=== PATIENT | male | born 1955 | race Caucasian/White ===

== ENCOUNTER → 2019-06-22 07:28 | Outpatient (CLI) | payer BC, SELFPAY ==
--- NOTE | 2019-06-22 | DI.MRI.S_ITS ---
PROCEDURE: MR LUMBAR SPINE WO CON INDICATIONS: Low back pain TECHNIQUE: Noncontrast sagittal T1 spin echo and T2 fast echo, sagittal STIR, axial T1 and T2 fast spin echo through the lumbar spine. In cases with scoliosis, additional coronal T2 fast spin echo may be performed. COMPARISON: None. FINDINGS: Image quality: Excellent. Alignment and Curvature: There is trace L3-L4 retrolisthesis. Bone Marrow: Minimal reactive endplate changes adjacent to the L1-L2, L2-L3, L3-L4 and L4-L5 discs. No acute vertebral body compression fractures. Spinal Cord: Conus medullaris terminates at the T12 level. Visualized cord demonstrates normal signal and size. Paraspinous Soft Tissues: No paravertebral masses. L1-L2: Loss of disc signal. No central stenosis. No neural foraminal narrowing. No neural compression. L2-L3: Loss of disc signal. Mild, diffuse disc bulge. No central stenosis. Mild bilateral neural foraminal narrowing. No neural compression. L3-L4: Loss of signal. Mild, diffuse disc bulge. No central stenosis. Moderate right and mild left neural foraminal narrowing. No neural compression. L4-L5: Loss of disc signal. Mild, diffuse disc bulge. Mild left facet hypertrophy. Small left foraminal disc protrusion. No central stenosis. Mild right and severe left neural foraminal narrowing with slight compression of the exiting left L4 nerve root. L5-S1: Normal appearance. IMPRESSION: 1. Mild multilevel degenerative disc disease. 2. No central stenosis. 3. Mild right and severe left L4-L5 neural foraminal narrowing. Moderate right and mild left L3-L4 neural foraminal narrowing. Mild bilateral L2-L3 neural foraminal narrowing. 4. Slight compression of the exiting left L4 nerve root secondary to foraminal stenosis caused by left foraminal disc protrusion. Dictated by: Wendy Hanna MD, PhD on 06/22/2019 at 11:36 Approved by: Wendy Hanna MD, PhD on 06/22/2019 at 11:52
== END ==
PROVIDERS: PCP Internal Medicine; Referring Provider Physical Medicine & Rehabilitation; Visit Provider Physical Medicine & Rehabilitation
DX: M51.36 Other intervertebral disc degeneration, lumbar region (principal); M51.26 Other intervertebral disc displacement, lumbar region; M48.061 Spinal stenosis, lumbar region without neurogenic claudication
CPT/HCPCS: 72148

== ENCOUNTER 2019-06-28 06:42 | Day surgery (SDC) | payer BC, SELFPAY ==
--- NOTE | 2019-06-28 | PATH_ITS ---
[facility] Accession Number: [id number] . 01 Material submitted: . PART A: colon - COLON POLYP AT 110 CM PART B: cecum - CECAL POLYPS PART C: colon - COLON POLYPS AT 60 CM . 01 Clinical history: . SCREENING COLONOSCOPY . 02 Diagnosis: A. Colon, Polyp at 110 cm, Biopsy: Tubular adenoma. . B. Cecum, Polyps, Biopsies: Tubular adenomas. . C. Colon, Polyps at 60 cm, Biopsy: Tubular adenoma in four of six fragments. MRV 06/29/2019 0947 Local . 02 Electronically signed: . Sera Sanabria MD, Pathologist NPI- [id number] . 01 Gross description: . Part A: COLON POLYP AT 110 CM: Received in formalin is 1 fragment(s) of silva, soft tissue measuring 0.4 x 0.4 x 0.3 cm submitted entirely in 1 cassette(s) Part B: CECAL POLYPS: Received in formalin are 4 fragment(s) of silva, soft tissue measuring 0.1 x 0.1 x 0.1 cm to 0.3 x 0.2 x 0.2 cm submitted entirely in 1 cassette(s) Part C: COLON POLYPS AT 60 CM: Received in formalin are multiple fragment(s) of silva, soft tissue measuring 0.1 x 0.1 x 0.1 cm to 0.4 x 0.2 x 0.2 cm submitted entirely in 1 cassette(s) /[facility] 06/28/2019 1930 Local . 02 Pathologist provided ICD-10: D12.0, D12.6 . 02 CPT . 660078, 341273, 234962 Performed at: [address] [facility] [place] [id number] MD Jae Mckeon MD Phone: [phone] Performed at: 02 [facility] [address] [place] [id number] MD Sera Sanabria MD Phone: [phone]
[2019-06-28 07:08] VITALS: BMI 25.2
[2019-06-28 07:14] VITALS: BP 168/80; PULSE 86; RESP 20; TEMP 36.4; O2SAT 100
[2019-06-28] MEDS: SODIUM CHLORIDE 0.9% 1,000 ML 200 ML IV (07:21)
--- NOTE | 2019-06-28 07:40 | PM.PREOP ---
Pre-operative Note Interval Note History & Physical reviewed/Exam performed by Physician: Yes Changes to H&P: No ASA Class (for procedural sedation): II
--- NOTE | 2019-06-28 08:18 | PM.OP.ENDO ---
Operative Date/Time/Diagnoses Date of procedure: 06/28/19 Time of procedure: 08:18 Pre-op diagnosis: screening colonoscopy Post-op diagnosis: same Procedure & Clinicians Study performed: Colonoscopy Same procedure as scheduled: Yes Indications: Screening last colonoscopy 10 years ago Surgeon: Graham Fitzpatrick Procedure Notes SCOAP/Timeout: Performed Procedure in detail: Patient placed in left lateral decubitus position. Time out was performed. Procedural sedation was administered with Versed and Fentanyl. A rectal exam demonstrated no external hemorrhoids no internal masses. Colonoscopy scope was placed into the rectum and advanced through the colon to the cecum. The ileocecal valve was identified. The scope was then slowly withdrawn examining colon thoroughly in all directions. The colonoscopy was notable for the following 1. Two adenomatous appearing polyps both less than 1 cm within the cecum removed with a combination cold snare and Jumbo forceps in their entirety. Hemostatic 2. One colonic from the transverse colon 110 cm from the anal verge adenomatous appearing less than 1 cm removed with Jumbo forceps. Hemostatic 3. Two adenomatous appearing polyps both less than 1 cm within the descending colon removed with Jumbo forceps hemostasis observed 4. Sigmoid diverticulosis Scope withdrawal time: 12 Sedation minutes: 26 Findings: polyp Specimen(s): other (Polyps) Complications: none Impression: Multiple Polyps, diverticulosis Post-procedure Recommendations: Colonscopy in 3 years Disposition: same day surgery
[2019-06-28 08:22] VITALS: BP 117/71; PULSE 85; RESP 12; TEMP 36.6; O2SAT 98
[2019-06-28] MEDS: fentaNYL 250 MCG/5 ML INJ IV (08:24)
[2019-06-28] MEDS: MIDAZOLAM 5 MG/5 ML VIAL IV (08:24)
[2019-06-28 08:27] VITALS: BP 105/64; PULSE 85; RESP 15; O2SAT 98
[2019-06-28 08:32] VITALS: BP 114/65; PULSE 88; RESP 14; O2SAT 98
[2019-06-28 08:35] VITALS: BP 102/63; PULSE 87; RESP 20; TEMP 37.2; O2SAT 98
[2019-06-28 09:05] VITALS: BP 115/76; PULSE 82; RESP 18; O2SAT 98
--- NOTE | 2019-06-28 09:21 | SUR.PHASEII ---
Discharge instructions given to pt and pt's . Both state they understand d/c instructions. pt d/sunshine in wheelchair with . No complaints voiced.
--- NOTE | 2019-06-30 10:14 | PM.HP.1 ---
History of Present Illness History of Present Illness Date Patient Seen: 06/30/19 Time Patient Seen: 10:15 Chief complaint: [id number] SCREENING COLONOSCOPY Narrative: 06/27-No interval change in health. 05/24/19-Patient presents for colorectal screening. They had a previous colonoscopy 10 years ago which was normal. No personal or family history of colon cancer. On further history denies any recent gastrointestinal symptoms. No nausea, vomiting, abdominal pain, loss of appetite, unexplained weight loss, change in bowel habits, diarrhea, constipation, melena, hematochezia, or bright red blood per rectum. Patient History Family & Social History Social History: household members spouse Tobacco & Substance use: Tobacco type cigarettes Smoking Status Current every day smoker alcohol intake current alcohol intake frequency a few times a week Substance Use Type does not use Meds Home Medications and Allergies Home Medications Medication Instructions Recorded Confirmed Type simvastatin 40 mg PO QPM #0 06/26/11 06/28/19 History metformin 500 mg PO BID #0 06/27/11 06/28/19 History sodium,potassium,mag sulfates 17.5 177 ml PO DAILY #354 ml 05/24/19 05/24/19 Rx gram-3.13 gram-1.6 gram oral soln Lantus Solostar U-100 Insulin 25 unit SUBCUT BEDTIME 06/28/19 06/28/19 History amlodipine 5 mg PO DAILY 06/28/19 06/28/19 History losartan 25 mg PO DAILY 06/28/19 06/28/19 History Allergies Allergy/AdvReac Type Severity Reaction Status Date / Time No Known Drug Allergies Allergy Verified 06/28/19 07:05 Review of Systems Review of Systems Narrative: A 10 point review of systems is negative except as noted in the HPI Exam Vital Signs (past 8 hours): Oxygen Delivery Method Room Air Narrative Exam Narrative: General-no acute distress, well nourished HEENT-moist mucous membranes, no scleral icterus Neck-supple, no lymphadenopathy Chest- non labored respirations, clear to auscultation bilaterally Cardiac-regular rate no peripheral edema Abdomen-soft, nontender, non distended Extremities-warm, well perfused Neurological-alert and oriented, no focal deficits Assessment & Plan Assessment and plan (1) Screening for colon cancer: Current visit: No Status: Acute Assessment & Plan narrative: The patient requires colorectal screening and colonoscopy is recommended. Technical details were discussed. Risks, benefits, alternatives explained. Risks including but not limited to myocardial infarction, aspiration, bleeding, pain, missed lesion, incomplete examination, need for further radiographic studies, colonic perforation, and need for major abdominal surgery were discussed. All questions were answered to their satisfaction, and they are in agreement with this plan.
== END 2019-06-28 09:26 | disposition home or self-care (01) ==
PROVIDERS: PCP Internal Medicine; Referring Provider Surgery; Visit Provider Surgery
PROC: 0DJD8ZZ Inspection of Lower Intestinal Tract, Via Natural or Artificial Opening Endoscopic (ICD-10-PCS; CPT 45378; principal; 2019-06-28 07:45)
DX: Z12.11 Encounter for screening for malignant neoplasm of colon (principal); F17.210 Nicotine dependence, cigarettes, uncomplicated; K57.30 Diverticulosis of large intestine without perforation or abscess without bleeding; D12.0 Benign neoplasm of cecum; D12.6 Benign neoplasm of colon, unspecified
CPT/HCPCS: 45385; 45380; 99152; 99153; J2250; J3010

== ENCOUNTER → 2020-06-20 19:42 | Outpatient (ROUT) | payer BC, SELFPAY ==
[2020-06-20 19:53] LABS: BUN Creatinine Ratio 22.9 (6-22); Blood Urea Nitrogen 16 mg/dL (9-20); Calcium 9.6 mg/dL (8.4-10.2); Carbon Dioxide 27 mmol/L (22-32); Chloride 106 mmol/L (98-107); Estimated Glomerular Filt Rate > 60.0 mL/min (>60); Glucose 135 mg/dL (80-110); HEMOLYSIS < 15 (0-50); Potassium 3.9 mmol/L (3.4-5.1); Sodium 139 mmol/L (137-145)
== END ==
PROVIDERS: PCP Internal Medicine; Visit Provider Internal Medicine
DX: I10 Essential (primary) hypertension (principal)
CPT/HCPCS: 80048

== ENCOUNTER → 2020-07-14 11:02 | Outpatient (CLI) | payer BC, SELFPAY ==
[2020-07-14] MEDS: COVID-19 VACC #1, MRNA(MOD) 100 MCG/0.5 ML VIAL IM (11:11)
== END ==
PROVIDERS: PCP Internal Medicine; Visit Provider Internal Medicine
DX: Z23 Encounter for immunization (principal)
CPT/HCPCS: 0011A; 91301

== ENCOUNTER → 2020-08-11 09:56 | Outpatient (CLI) | payer BC, SELFPAY ==
[2020-08-11] MEDS: COVID-19 VACC #2, MRNA(MOD) 100 MCG/0.5 ML VIAL IM (10:06)
== END ==
PROVIDERS: PCP Internal Medicine; Visit Provider Internal Medicine
DX: Z23 Encounter for immunization (principal)
CPT/HCPCS: 0012A; 91301

== ENCOUNTER 2021-06-26 22:42 | Emergency (ER) | payer SELFPAY ==
[2021-06-26 22:48] VITALS: BP 135/65; PULSE 88; RESP 20; TEMP 36.5; O2SAT 98; BMI 26.5
--- NOTE | 2021-06-26 23:14 | PC.NURSE ---
pt given turkey sandwich and apple juice
[2021-06-26] MEDS: SODIUM CHLORIDE 0.9% 1,000 ML 1000 ML IV (23:25)
--- NOTE | 2021-06-26 23:25 | PC.NURSE ---
pt has not been able to afford enough food to maintain his bs, but took his metformin
[2021-06-26 23:51] LABS: Add Manual Diff / Slide Review NO; Basophils Absolute Auto 100 /uL (0-100); Basophils Percent Auto 0.6 % (0-2); Eosinophils Absolute Auto 0 /uL (0-450); Eosinophils Percent Auto 0.3 % (2-4); Hematocrit 33.4 % (41-53); Hemoglobin 10.9 g/dL (13.5-17.5); Lymphocytes Absolute Auto 1100 /uL (1100-4500); Lymphocytes Percent Auto 11.1 % (25-40); Mean Corpuscular HGB Conc 32.5 % (30-36); Mean Corpuscular Hemoglobin 35.4 PG (26-34); Mean Corpuscular Volume 108.9 fL (80-100); Monocytes Absolute Auto 800 /uL (0-900); Monocytes Percent Auto 8.3 % (3-14); Neutrophils Absolute Auto 7800 /uL (1500-7000); Neutrophils Percent Auto 79.7 % (50-75); Platelet Count 346 X10^3/uL (150-400); Red Blood Cell Count 3.07 X10^6/uL (4.5-5.9); Red Cell Distribution Width 15.6 % (11.6-14.8); White Blood Cell Count 9.8 X10^3/uL (4.5-11.0)
[2021-06-26 23:57] VITALS: PULSE 86; O2SAT 97
[2021-06-27] VITALS: PULSE 86; O2SAT 99
[2021-06-27 00:01] LABS: Alanine Aminotransferase 23 IU/L (<50); Albumin 4.3 g/dL (3.5-5.0); Albumin Globulin Ratio 1.2 (1.0-2.8); Alkaline Phosphatase 334 U/L (38-126); Aspartate Aminotransferase 67 IU/L (17-59); BUN Creatinine Ratio 12.3 (6-22); Bilirubin Total 0.7 mg/dL (0.2-1.3); Blood Urea Nitrogen 9 mg/dL (9-20); Calcium 7.9 mg/dL (8.4-10.2); Carbon Dioxide 24 mmol/L (22-32); Chloride 102 mmol/L (98-107); Estimated Glomerular Filt Rate > 60.0 mL/min (>60); Globulin 3.7 g/dL (1.7-4.1); Glucose 72 mg/dL (80-110); HEMOLYSIS < 15 (0-50); Hemoglobin A1C% w Est Avg Glu 4.5 % (4.0-6.0); Potassium 3.1 mmol/L (3.4-5.1); Sodium 139 mmol/L (137-145)
[2021-06-27 00:03] LABS: Ketones (Beta-Hydroxybutyrate) 0.69 mmol/L (<0.27)
[2021-06-27 00:30] VITALS: PULSE 87; O2SAT 96
[2021-06-27 01:00] VITALS: PULSE 90; O2SAT 96
[2021-06-27 01:30] VITALS: PULSE 91; O2SAT 98
[2021-06-27 02:00] VITALS: BP 130/64; PULSE 92; O2SAT 96
--- NOTE | 2021-06-27 06:56 | ED.GENADULT ---
HPI - General Adult General Chief complaint: Diabetic Problem Stated complaint: Hypoglycemia Time Seen by Provider: 06/26/21 23:00 Source: patient and EMS Mode of arrival: EMS History of Present Illness HPI narrative: 66-year-old male daily smoker with history of diabetes, hyperlipidemia presents by EMS for evaluation of a low blood sugar noted earlier. He has been having trouble affording not only medications but also food since being laid off from his job recently. He states that he has been taking metformin 500 mg twice daily but no other diabetic medications. He states that he has had increasing difficulty finding food and despite the fact that he keeps taking his medications he had only a portion of a sandwich yesterday. He he became increasingly weak and eventually confused to the point that family called EMS. On their arrival they found his blood sugar to be 22. He was treated with dextrose EN route and was asymptomatic on arrival. He denies fever chills. He has had no chest pain or shortness of breath. Denies nausea, vomiting or diarrhea Related Data Home Medications Medication Instructions Recorded Confirmed simvastatin 40 mg tablet 40 mg PO QPM #0 06/26/11 06/28/19 metformin 500 mg tablet 500 mg PO BID #0 06/27/11 06/28/19 amlodipine 5 mg tablet 5 mg PO DAILY 06/28/19 06/28/19 insulin glargine 100 unit/mL (3 25 unit SUBCUT BEDTIME 06/28/19 06/28/19 mL) subcutaneous pen (Lantus Solostar U-100 Insulin) losartan 25 mg tablet 25 mg PO DAILY 06/28/19 06/28/19 Previous Rx's Medication Instructions Recorded sodium,potassium,mag sulfates 17.5 177 ml PO DAILY #354 ml 05/24/19 gram-3.13 gram-1.6 gram oral soln (Suprep Bowel Prep Kit) Allergies Allergy/AdvReac Type Severity Reaction Status Date / Time No Known Drug Allergies Allergy Verified 06/28/19 07:05 Review of Systems Review of Systems Narrative: GENERAL: Denies chills, fatigue, malaise, fever, sweats. HEENT: Denies sinus pain, ear pain, sore throat, difficulty swallowing, dizziness. RESPIRATORY: Denies dyspnea, cough, wheezing, hemoptysis, sputum. CARDIOVASCULAR: Denies chest pain, palpitations, orthopnea, edema, GASTROINTESTINAL: Denies nausea, vomiting, abdominal pain, diarrhea, constipation, melena. : Denies dysuria, frequency, incontinence, hematuria, urinary retention. MUSCULOSKELETAL: denies weakness, joint pain, or bony pain SKIN: Denies rash, skin lesions, or other NEUROLOGIC: Denies weakness, headache, numbness, change in speech, confusion, seizures, incoordination. PSYCHIATRIC: No concerning psychosocial issues. 12 point review of systems is negative except for those stated above Patient History Medical History BP (high blood pressure) Diabetes Family History Father Hypertension Diabetes mellitus Cancer Social History household members: spouse Smoking Status: Current every day smoker alcohol intake: current Smoking Status: Current every day smoker alcohol intake frequency: a few times a week Substance Use Type: does not use Exam Narrative Exam Narrative: GENERAL: [66] year old patient appears stated age. Well-developed patient, in mild distress. HEAD: Atraumatic. Normocephalic. EYES: Pupils equal round and reactive. Extraocular motions intact. No scleral icterus. No injection or drainage. ENT: Nose without bleeding, purulent drainage. Throat without erythema, tonsillar hypertrophy or exudate. Airway patent. NECK: Trachea midline. Non tender CARDIOVASCULAR: Regular rate and rhythm without murmurs, gallops, or rubs. RESPIRATORY: Clear to auscultation. Breath sounds equal bilaterally. No wheezes, rales, or rhonchi. GASTROINTESTINAL: Abdomen soft, non-tender, nondistended. EXTREMITIES: No edema or joint tenderness. BACK: Nontender without deformity or crepitance. No flank tenderness. NEURO: AOx3. SKIN: No rash or erythema of visible areas Initial Vital Signs Initial Vital Signs: Vital Signs Temperature 97.7 F 06/26/21 22:48 Pulse Rate 88 06/26/21 22:48 Respiratory Rate 20 06/26/21 22:48 Blood Pressure 135/65 06/26/21 22:48 Pulse Oximetry 98 06/26/21 22:48 Course Course Course Narrative: Patient feeling much better over the duration of his stay. He is eating and drinking without difficulty and labs remained stable. I offered to put in a social work consult and keep him until they became available later in the day but he stated he would prefer to go home and contact them over the phone. Nursing put in a referral to social Work to see what options and community resource of may be available. Patient given extensive return precautions and questions been answered to his apparent satisfaction Orders Ordered: ED Orders 06/26/21 22:54 Consult to CDC ASSOCIATE - Law Firm Administrator Stat 06/26/21 23:33 A1C [Hemoglobin A1C% w Est Avg Glu] Stat Complete Blood Count AUTO DIFF Stat Comprehensive Metabolic Panel Stat Ketones (Beta-Hydroxybutyrate) Stat Discontinued Medications Sodium Chloride (Normal Saline 0.9%) 1,000 mls @ 1,000 mls/hr IV BOLUS ONE Stop: 06/27/21 00:11 Last Infusion: 06/27/21 01:24 Dose: 0 mls/hr Documented by: Admin: 06/26/21 23:25 Dose: 1,000 mls/hr Documented by: RANDOLPH Vital Signs Vital signs: Vital Signs - 8 hr 06/26/21 23:57 06/27/21 00:00 06/27/21 00:30 Pulse Rate 86 86 87 Blood Pressure Pulse Oximetry 97 99 96 06/27/21 01:00 06/27/21 01:30 06/27/21 02:00 Pulse Rate 90 91 H 92 H Blood Pressure 130/64 Pulse Oximetry 96 98 96 Medical Decision Making Lab Data Result diagrams: 06/26/21 23:33 06/26/21 23:33 Labs: Lab Results 06/26/21 06/26/21 06/26/21 Range/Units 23:33 23:33 23:33 WBC 9.8 (4.5-11.0) X10^3/uL RBC 3.07 L (4.5-5.9) X10^6/uL Hgb 10.9 L (13.5-17.5) g/dL Hct 33.4 L (41-53) % MCV 108.9 H (80-100) fL MCH 35.4 H (26-34) PG MCHC 32.5 (30-36) % RDW 15.6 H (11.6-14.8) % Plt Count 346 (150-400) X10^3/uL Neut % (Auto) 79.7 H (50-75) % Lymph % (Auto) 11.1 L (25-40) % [place] % (Auto) 8.3 (3-14) % Eos % (Auto) 0.3 L (2-4) % Baso % (Auto) 0.6 (0-2) % Neut # (Auto) 7800 H (3719-4560) /uL Lymph # (Auto) 1100 (8891-6191) /uL [place] # (Auto) 800 (0-900) /uL Eos # (Auto) 0 (0-450) /uL Baso # (Auto) 100 (0-100) /uL Sodium 139 (137-145) mmol/L Potassium 3.1 L (3.4-5.1) mmol/L Chloride 102 (98-107) mmol/L Carbon Dioxide 24 (22-32) mmol/L BUN 9 (9-20) mg/dL Creatinine 0.73 (0.66-1.25) mg/dL Estimated GFR > 60.0 (>60) mL/min BUN/Creatinine Ratio 12.3 (6-22) Glucose 72 L (80-110) mg/dL Hemoglobin A1c 4.5 (4.0-6.0) % Calcium 7.9 L (8.4-10.2) mg/dL Total Bilirubin 0.7 (0.2-1.3) mg/dL AST 67 H (17-59) IU/L ALT 23 (<50) IU/L Alkaline Phosphatase 334 H (38-126) U/L Total Protein 8.0 (6.3-8.2) g/dL Albumin 4.3 (3.5-5.0) g/dL Globulin 3.7 (1.7-4.1) g/dL Albumin/Globulin Ratio 1.2 (1.0-2.8) Ketones 0.69 H (<0.27) mmol/L Point of Care Testing Glucose POC 83 Point of care testing: Point of Care Testing Glucose POC 83 Discharge Plan Departure Patient Disposition: Home Clinical Impression: Hypoglycemia Instructions: DI for Hypoglycemia Activity Restrictions/Additional Instructions: *You have been diagnosed with [low blood sugar, likely a consequence of taking her medications will not eating. Your blood work and response to therapies is very reassuring. *What to do: *Please continue to take your regular medications as directed. [ ] New medication prescriptions sent to your pharmacy: [ ] [ ] New medication written as a paper prescription [x ] No new medications given *We have submitted paperwork to social Work on your behalf, in addition I have included their contact information below. Please call them later today. The easiest way to help would likely be for you to call the Emergency Department ([phone]) and ask to be connected with social work. *If you do not have a primary care provider please contact the [facility] Resource line at [phone]. They will ask some questions about your medical history and help get you set up with a doctor in the community. *Return to Emergency Department if you should have any new, worsening or concerning symptoms, such as [fever greater than 101 F, shaking chills, worsening pain, persistent vomiting or other bothersome symptoms] Prescriptions: No Action simvastatin 40 MG tablet 40 mg PO QPM Qty: 0 0RF metformin 500 mg Tablet 500 mg PO BID Qty: 0 0RF Suprep Bowel Prep Kit 17.5-3.13-1.6 gram recon soln 177 ml PO DAILY Qty: 354 0RF Rx Instructions: Take per instructions from clinic amlodipine 5 mg tablet 5 mg PO DAILY 0RF losartan 25 mg tablet 25 mg PO DAILY 0RF Lantus Solostar U-100 Insulin 100 unit/mL (3 mL) insulin pen 25 unit SUBCUT BEDTIME 0RF Referrals: Jamey Rodriguez MD [Primary Care Provider] -
== END 2021-06-27 02:32 | disposition home or self-care (01) ==
PROVIDERS: Emergency Provider Emergency Medicine; PCP Internal Medicine
DX: E11.649 Type 2 diabetes mellitus with hypoglycemia without coma (principal); Z79.84 Long term (current) use of oral hypoglycemic drugs
CPT/HCPCS: 36415; 80053; 82009; 82962; 83036; 85025; 96360; 96361; 99284

== ENCOUNTER 2023-05-08 12:03 | Day surgery (SDC) | payer OTHER, SELFPAY ==
[2023-05-01 10:10] VITALS: BMI 22.9
--- NOTE | 2023-05-08 12:29 | PM.PREOP ---
Pre-operative Note Interval Note History & Physical reviewed/Exam performed by Physician: Yes Changes to H&P: No
--- NOTE | 2023-05-08 13:08 | SUR.OPER ---
Beach chair with J Carlosn/Mindy shoulder positioner. Lower body on padded OR bed. Head in foam padded head cradle, secured with straps. Non-operative arm secured across patients chest and padded . Pillow under knees. Safety belt at thigh. Cloth tape over blanket over lower legs.
[2023-05-08 13:09] VITALS: BMI 22.9
[2023-05-08 13:19] VITALS: BP 133/69; PULSE 66; RESP 17; TEMP 36.5; O2SAT 100
[2023-05-08] MEDS: LACTATED RINGERS 1,000 ML 42 ML IV (13:19)
--- NOTE | 2023-05-08 13:39 | SUR.PREOP ---
Block start time [1323] . Monitoring initiated and maintained throughout procedure. Oxygen and medications given per anesthesiologist instructions. Patient remained stable throughout procedure, no adverse reactions noted. Block end time [1335].
[2023-05-08] MEDS: TRANEXAMIC ACID 1,000 MG VIAL 1000 MG INJ (13:45)
[2023-05-08] MEDS: CEFAZOLIN 2 GM/100 ML PREMIX 100 ML IV (13:49)
--- NOTE | 2023-05-08 15:35 | DI.RAD.S_ITS ---
PROCEDURE: XR SHOULDER LT MIN 2V INDICATIONS: FX REPAIR SURGICAL NECK LT SHOULDER TECHNIQUE: 2 views of the shoulder were acquired. COMPARISON: [facility], CR, XR HUMERUS LEFT, 01/02/2023, 11:25. [facility], CR, XR CHEST 2 VIEWS, 03/04/2023, 12:21. FINDINGS: Intraoperative C-arm images demonstrate improved alignment status post ORIF of left proximal humeral neck fracture with placement of lateral fixation plate and multiple associated fixation screws. IMPRESSION: Intraoperative imaging demonstrates improved alignment status post ORIF of proximal humeral neck fracture. Dictated by: Reggie LOPEZ Interpreted: Eric Carpenter MD on 05/08/2023 at 15:48 Transcribed by: JUSTNIE on 05/08/2023 at 15:50 Approved by: Eric Carpenetr M.D. on 05/23/2023 at 17:03
--- NOTE | 2023-05-08 15:38 | PM.OP.1 ---
Operative Date/Time/Diagnoses Date of procedure: 05/08/23 Time of procedure: 15:38 Pre-op diagnosis: Left proximal humerus nonunion Post-op diagnosis: same Procedure & Clinicians Procedure: Operative fixation left proximal humerus fracture Same procedure as scheduled: Yes Indications: Indications: This is a 68-year-old male who has spent the last year treating his proximal humerus nonoperatively. Unfortunately he is gone onto a nonunion. After careful consideration he wished to go forward with operative fixation. Risks and benefits of surgery were discussed again including the risk of infection, damage to internal structures, bleeding, nerve injury, instability, need for revision surgery, blood clots, anesthesia and . No guarantees were made regarding outcomes. Patient expressed understanding and accepted these risks and wished to go forward with surgery and consent was signed. Surgeon: Andrew Davis Client Engagement Manager: Chanel Avery Anesthesia Type: General Operative Notes Findings: Findings: 2 part proximal humerus fracture with significant fracture callus and scarring Closure Type: primary Specimen(s): none sent Prosthetic devices, grafts, tissues, transplants, or devices: Implants: Acumed proximal humerus locking plate Estimated Blood Loss (mL): 50 Blood products transfused: none Procedure in detail: Patient was seen in the preoperative holding area. The left upper extremity was examined and marked with my initials. We again went over the risks and benefits of surgery and consent was signed. The patient was brought back to the operating room and placed in a beach chair position. All bony prominences were padded. 2 g of Ancef and 1g of TXA were given. The left upper extremity was prepped and draped in the standard sterile fashion. A time-out was then performed in my initials were again confirmed on the left upper extremity. A standard deltopectoral approach was performed. The cephalic vein was encountered and moved lateral and protected throughout the remainder of the case. The clavipectoral fascia was incised and the conjoined tendon was retracted medially. The biceps remained in the bicipital groove and was not tenodesed. The subacromial space and deltoid were freed of all adhesions. The axillary nerve was identified and protected through the entirety of the procedure. It was noted at this time there was significant fracture callus although majority of the fracture was not healed. The fracture site was debrided and using a high speed bur, it was decorticated around the fracture site. Then using 15 cc of cancellous bone chips, these were crushed and placed into and around the fracture site. Last a Acumed proximal humerus locking plate was selected and placed onto the proximal fragment at the appropriate angle. Because the fracture was in varus, it was placed such that when reduced it would bring it into more valgus. The proximal locking screws were 1st placed, it was then reduced to the shaft and 3 shaft screws were placed. Last, a calcar screw was placed. Final tightening was performed. X-ray was taken in approach withdrawal method to ensure that all screw lengths were appropriate Wounds were thoroughly irrigated. The skin were then closed with 2-0 Vicryl and rebel. Sterile dressings were placed the patient was then brought to the postanesthesia care unit. Assisting participation: This operation could not have been safely performed (without compromising the technical results or length of the procedure) without the assistance of a skilled surgical supply assistant. The surgical supply assistant was medically necessary for proper positioning, retraction and manipulation of instruments, proper exposure, graft prep, and manipulation of tissue. Complications: none Post-operative Condition: stable Disposition: PACU Plan for aftercare: Postoperatively: Sling for comfort only for 2 weeks then begin [id number] exercises with physical therapy. Aquacel dressing to remain on for 2 weeks. This will be removed in clinic as well as the underlying rebel. Okay to shower with soap and water running over top of the dressing. NOTE: If water gets underneath the dressing, please remove the dressing and replace with clean dry 4x4s.
[2023-05-08 16:05] VITALS: BP 153/81; PULSE 96; RESP 13; TEMP 36.3; O2SAT 98
[2023-05-08 16:11] VITALS: BP 148/75; PULSE 87; RESP 12; TEMP 36.3; O2SAT 98
[2023-05-08 16:17] VITALS: BP 157/81; PULSE 94; RESP 13; TEMP 36.3; O2SAT 98
[2023-05-08 16:22] VITALS: BP 151/83; PULSE 90; RESP 15; TEMP 36.2; O2SAT 98
== END 2023-05-08 16:35 | disposition home or self-care (01) ==
PROVIDERS: PCP Internal Medicine; Referring Provider Internal Medicine; Visit Provider Orthopaedic Surgery
PROC: (CPT 23615; principal; 2023-05-08 14:45)
DX: S42.202K Unspecified fracture of upper end of left humerus, subsequent encounter for fracture with nonunion (principal); G89.18 Other acute postprocedural pain
CPT/HCPCS: 23615; 64450; 73030; 76000; C1776; J0690; J1100; J2405; J2704; J3010